=== PATIENT | male | born 1955 ===

== ENCOUNTER 2017-10-11 19:37 | Emergency (ER) | payer SELFPAY ==
[2017-10-11 20:02] VITALS: BMI 28.1
[2017-10-11 20:09] VITALS: RESP 16
[2017-10-11] MEDS ORDERED: Lidocaine/Epi 1% 1:100000 20 ML IJ ONE (20:38)
[2017-10-11] MEDS ORDERED: Tdap Vaccine 0.5 ml Vial (10-64 yrs) IM ONE ×2 (20:39→20:50)
--- NOTE | 2017-10-11 20:42 | ED PDOC ---
HPI: Trauma/Fall - HPI Time Seen by Provider: 10/11/17 20:19 Chief Complaint (Nursing): Trauma Chief Complaint (Provider): trauma History Per: Patient, Family History/Exam Limitations: no limitations Injury Occurred (Timing): Just Before Arrival Additional Complaint(s): 61 y/o male brought in by family for evaluation of head injury sustained prior to arrival. Patient states he was trying to take 4x4 wood pieces off of his pickup truck and they fell, hitting him on the back of his head/neck, causing him to forward and hit front of head on ground. Patient unsure if he lost consciousness. Patient reports dizziness and pain to neck and upper back with movement. Denies numbness/weakness of extremities, vision changes, vomiting, chest pain, shortness of breath, low back pain, bowel/bladder incontinence. Last Tetanus unknown Past Medical History Reviewed: Historical Data, Nursing Documentation, Vital Signs Vital Signs: Last Vital Signs Temp 99.1 F 10/11/17 20:02 Pulse 60 10/11/17 20:02 Resp 16 10/11/17 20:02 BP 115/73 10/11/17 20:02 Pulse Ox 99 10/11/17 20:02 - Medical History PMH: No Chronic Diseases - Surgical History Surgical History: No Surg Hx - Family History Family History: States: No Known Family Hx - Living Arrangements Living Arrangements: With Family - Home Medications Home Medications: Ambulatory Orders Medication Instructions Recorded Bacitracin Ointment [Bacitracin] 1 applic TOP BID #1 tube 10/12/17 Cephalexin [cephalexin] 500 mg PO Q6 #39 cap 10/12/17 Cyclobenzaprine [Cyclobenzaprine 10 mg PO BID PRN #14 tab 10/12/17 HCl] Naproxen [Naprosyn] 500 mg PO Q12 PRN #20 tablet 10/12/17 oxyCODONE/Acetaminophen [Percocet 1 ea PO Q6 PRN #12 tab 10/12/17 5/325 mg Tab] - Allergies Allergies/Adverse Reactions: Allergies Allergy/AdvReac Type Severity Reaction Status Date / Time No Known Allergies Allergy Verified 10/11/17 20:02 Review of Systems ROS Statement: Except As Marked, All Systems Reviewed And Found Negative Musculoskeletal: Positive for: Neck Pain, Back Pain Skin: Positive for: Other (laceration) Physical Exam - Reviewed Nursing Documentation Reviewed: Yes Vital Signs Reviewed: Yes - Physical Exam Appears: Positive for: Well, Non-toxic, No Acute Distress Head Exam: Negative for: ATRAUMATIC (8cm "U" shape laceration frontal scalp; no active bleeding. Skin erosed/friable in center of laceration; edges approximate well. 1.5cm superficial laceration posterior to first laceration. midline parietal scalp abrasion with underlying hematoma. ) Skin: Positive for: Normal Color Eye Exam: Positive for: EOMI, PERRL ENT: Positive for: Normal ENT Inspection Cardiovascular/Chest: Positive for: Regular Rate, Rhythm Respiratory: Positive for: Normal Breath Sounds Gastrointestinal/Abdominal: Positive for: Normal Exam Back: Positive for: Normal Inspection, Vertebral Tenderness (lower cspine tenderness, upper tspine tenderness; no bony deformity. No lspine tenderness), Decreased ROM (secondary to pain). Negative for: L CVA Tenderness, R CVA Tenderness Extremity: Positive for: Normal ROM Neurologic/Psych: Positive for: Alert, Oriented (x3). Negative for: Motor/ Sensory Deficits - Laboratory Results Result Diagrams: 10/11/17 22:24 10/11/17 22:24 - ECG O2 Sat by Pulse Oximetry: 99 - Progress ED Course And Treament: cervical collar applied. CT head, CT cspine, CT tspine, IM adacel, PO meclizine ordered labs, ekg, IV ancef ordered Addendum created by Bernadette Bergeron MD on 10/11/2017 11:22 PM Eastern Time ([place] & [place]) The exam findings were discussed by me with SIDDHARTHA Escobar, via telephone conference at 11:22 PM EDT on 10/11/2017. The finding(s) were acknowledged and understood. Initial Report created on 10/11/2017 11:08 PM Eastern Time ([place] & [place]) EXAM: CT Head Without Intravenous Contrast EXAM DATE/TIME: 10/11/2017 CLINICAL HISTORY: 61 years old, male; Injury or trauma; Injury history: Object fell on head; Initial encounter; Blunt trauma (contusions or hematomas); Consciousness not specified; Additional info: Head injury TECHNIQUE: Axial computed tomography images of the head/brain without intravenous contrast. All CT scans at this facility use at least one of these dose optimization techniques: automated exposure control; mA and/or kV adjustment per patient size (includes targeted exams where dose is matched to clinical indication); or iterative reconstruction. COMPARISON: No relevant prior exam is available at the time of interpretation. FINDINGS: Brain: No acute intracranial hemorrhage. No abnormal extra-axial fluid collection. No herniation. Patent basal cisterns. Preserved sheffield-white matter differentiation. No evidence of acute ischemia. No evident intracranial mass. Ventricles: No ventriculomegaly. Bones/joints: No evident calvarial fracture. Sinuses: Minimal mucosal thickening in the paranasal sinuses. Mastoid air cells: The mastoid air cells are clear. Orbits: No evident abnormality of the intraorbital contents. Soft tissues: Midline frontoparietal scalp contusion. Several small foci of air scattered in the contused scalp. Two high attenuation foreign bodies in the contused scalp, the larger of which measures 4 x 3 x 3 mm (series 602, image 41). IMPRESSION: 1. No acute intracranial findings. 2. Midline frontoparietal scalp contusion and laceration. Two sub-5 mm high attenuation foreign bodies in the contused scalp EXAM: CT Cervical Spine Without Intravenous Contrast EXAM DATE/TIME: 10/11/2017 CLINICAL HISTORY: 61 years old, male; Injury or trauma; Injury history: Object fell on head; Initial encounter; Blunt trauma TECHNIQUE: Axial computed tomography images of the cervical spine without intravenous contrast. All CT scans at this facility use at least one of these dose optimization techniques: automated exposure control; mA and/or kV adjustment per patient size (includes targeted exams where dose is matched to clinical indication); or iterative reconstruction. COMPARISON: No relevant prior exam is available at the time of interpretation. FINDINGS: Vertebrae: The spine is imaged from the skull base through T3. Acute, minimally displaced fracture through the C5 spinous process with extension anteriorly through the posterior aspect of the right C5 lamina. Acute fracture through the T1 spinous process that is displaced by up to 12 mm. There is no extension of the T1 spinous process fracture through either T1 lamina. No other acute fracture. Incidental note is made of an unfused inferior ring apophysis of the C5 vertebral body. Aside from the displacement of the acute fractures, there is normal alignment of the imaged spine. Discs/Spinal canal/Neural foramina: No evident acute abnormality within the spinal canal. Soft tissues: No prevertebral soft tissue swelling. Mild to moderate soft tissue hemorrhage and edema surrounding the acute spinal fractures. Lung apices: No pleural fluid collection, pneumothorax, or airspace consolidation in the imaged portion of the thorax. Sinuses: Mild mucosal thickening in the left maxillary sinus. IMPRESSION: 1. Acute, minimally displaced fracture of the C5 spinous process with extension through the right lamina. 2. Acute, displaced fracture of the T1 spinous process without extension through either lamina. 3. Mild to moderate soft tissue hemorrhage and edema surrounding the acute spinal fractures. EXAM: CT Thoracic Spine Without Intravenous Contrast EXAM DATE/TIME: 10/11/2017 CLINICAL HISTORY: 61 years old, male; Injury or trauma; Injury history: Object fell on head; Initial encounter; Blunt trauma (contusions or hematomas) TECHNIQUE: Axial computed tomography images of the thoracic spine without intravenous contrast. All CT scans at this facility use at least one of these dose optimization techniques: automated exposure control; mA and/or kV adjustment per patient size (includes targeted exams where dose is matched to clinical indication); or iterative reconstruction. Coronal and sagittal reformatted images were created and reviewed. COMPARISON: No relevant prior exam is available at the time of interpretation. FINDINGS: Vertebrae: The spine is imaged from mid C5 through the top of L1. Acute fracture through the T1 spinous process that is displaced by up to 12 mm. There is no extension of the T1 spinous process fracture through either T1 lamina. No other acute fracture of the thoracic spine. Aside from the displacement of the T1 spinous process fracture, there is normal alignment of the imaged spine. Discs/Spinal canal/Neural foramina: No evident acute abnormality within the spinal canal. Mild multilevel degenerative changes of the thoracic spine. Other bones/joints: Acute, nondisplaced fracture of the posterior right 2nd rib. Soft tissues: Moderate soft tissue hemorrhage and edema surrounding the T1 spinous process fracture. Lungs: Patchy ground glass opacity in both lungs, lower lobe predominant. Pleural space: Several pleural-based or subpleural nodules along the right hemidiaphragm, the largest of which measures 17 mm. No pneumothorax or pleural fluid collection in the imaged portion of the thorax. Other findings: Cardiomegaly. IMPRESSION: 1. Acute, displaced fracture of the T1 spinous process without extension through either lamina. 2. Acute, nondisplaced fracture of the posterior right 2nd rib. 3. Several pleural-based or subpleural nodules along the right hemidiaphragm, the largest of which measures 17 mm. Follow up per institution protocol. 4. Patchy ground glass opacity in both lungs is likely subsegmental atelectasis but differential diagnosis also includes entities such as pulmonary edema, an atypical or viral pneumonia, and early interstitial lung disease. 5. Additional findings as described above. Findings discussed with Dr. Tellez, Neurosurgery on-call; recommends cspine flexion/extension xray's, if normal can be discharged EXAM: XR Cervical Spine, 6 or More Views EXAM DATE/TIME: 10/11/2017 11:43 PM CLINICAL HISTORY: 61 years old, male; Injury or trauma; Injury history: Object fell on head; Initial encounter; Bleeding/hemorrhage and blunt trauma; Additional info: Cspine FX. Flexion extention per nutoriergeon TECHNIQUE: XR of the cervical spine, 6 or more views (frontal, lateral, bilateral oblique, and odontoid views as well as flexion and extension lateral views). COMPARISON: CT Cervical Spine 10/11/2017 FINDINGS: Vertebrae: The C7-T1 junction is inadequately visualized on the lateral views in neutral, flexion, and extension positions. The C6-C7 junction is inadequately visualized on the lateral view in flexion position. There is normal alignment of the skull base through C7 on the lateral views in neutral and extension positions. There is normal alignment of the skull base through C6 on the lateral view in flexion position. The C5 spinous process fracture and T1 spinous process fracture are redemonstrated but are suboptimally delineated on this examination. Redemonstrated unfused inferior ring apophysis of the C5 vertebral body. Soft tissues: No prevertebral soft tissue swelling. IMPRESSION: 1. The C7-T1 junction is inadequately visualized on the lateral views in neutral , flexion, and extension positions. The C6-C7 junction is inadequately visualized on the lateral view in flexion position. 2. There is normal alignment of the skull base through C7 on the lateral views in neutral and extension positions. There is normal alignment of the skull base through C6 on the lateral view in flexion position. 3. Redemonstrated spinous process fractures of C5 and T1, suboptimally delineated on this examination. Superficial laceration anesthetized with 1% lido with epi; explored for FB; visible gravel piece noted embedded within superficial laceration; removed using forceps Area again thoroughly irrigated with 250mL NS 2 sutures used to close wound, which opened after probing with forceps to remove FB (noted in procedure section) Xray findings discussed with Dr. Tellez, who states patient can be discharged. Soft c collar applied Patient given incentive spirometer with instructions on use by respiratory therapist for rib fracture Patient evaluated by FP resident on-call to expedite clinic follow up On re-eval, patient states he is feeling better. Ambulating without difficulty/ acute complaints Patient/family educated on wound care, advised suture removal 10 days, but to follow up in 2 days for wound check Rx keflex, Percocet, Naproxen, Flexeril, Bacitracin given Return precautions given Of note, patient speaks Israeli, son also here translating in Greek, patient comfortable with family translating instead of using curtain roller assembler machine Patient/family demonstrate full understanding of discharge instructions. Patient requires no further intervention in ED and is stable for discharge at this time Disposition - Clinical Impression Clinical Impression: Fracture of spinous process of cervical vertebra, Fracture of spinous process of thoracic vertebra, Right rib fracture, Complex laceration of face, Head injury - Patient ED Disposition Is Patient to be Admitted: No Counseled Patient/Family Regarding: Studies Performed, Diagnosis, Need For Followup - Disposition Referrals: [facility] [Outside] Disposition: Routine/Home Disposition Time: 03:00 Condition: IMPROVED Additional Instructions: Eliminacin de sutura en 10 fraser Seguimiento en la clnica en 2 fraser para el control de heridas Herida limpia diariamente Regresar a la pavel de emergencias para tratar los sntomas Prescriptions: Bacitracin Ointment [Bacitracin] 1 applic TOP BID #1 tube Cephalexin [cephalexin] 500 mg PO Q6 #39 cap Cyclobenzaprine [Cyclobenzaprine HCl] 10 mg PO BID PRN #14 tab PRN Reason: Muscle Spasm Naproxen [Naprosyn] 500 mg PO Q12 PRN #20 tablet PRN Reason: Pain, Moderate (4-7) oxyCODONE/Acetaminophen [Percocet 5/325 mg Tab] 1 ea PO Q6 PRN #12 tab PRN Reason: Pain, Severe (8-10) Instructions: Rib Fractures in Adults, Neck Fracture, Laceration Repair, Upper Back Pain, Minor Head Injury Print Language: KOREAN Procedure: Wound Repair - Time Performed Time Performed: 22:00 - Time Out Time Out: Side verified, Site verified, Patient ID confirmed, Sterile procedures obs. - Procedure Procedure: Wound Repair: forehead/scalp laceration - Consent Obtained Consent obtained: Verbal - Performed by Performed by: Mid-level Provider - Location Shape:: Curvilinear Dimensions Length cm: 8cm Dimensions width cm: 2cm Depth:: Muscle - Anesthetic Technique Anesthetic Technique: Topical Local/Regional Anesthetic:: Lidocaine 1% w/epi - Debris Debris:: None - Irrigated Irrigated with ml of normal saline: 250mL - Complexity Complexity:: Simple (one layer) - Wound repair method Sutures:: # (16 in first laceration, 2 in second laceration (18 total)), Size (5 '0), Type (prolene), Technique (interrupted) - Patient tolerated procedure Patient Tolerated Procedure:: Well
[2017-10-11] MEDS ORDERED: Lidocaine 1% w Epi 1:100,000 Inj ONE (20:49)
[2017-10-11] MEDS ORDERED: ceFAZolin 1 GM in Sodium Chloride 0.9% 100 ML IV STA (21:38)
[2017-10-11 22:28] LABS: BASO % 0.2 % (0.0-2.0); EOS % 0.1 % (0.0-4.0); HEMOGLOBIN 13.3 g/dL (12.0-18.0); LYMPH # 1.1 K/uL (1.0-4.3); LYMPH % 6.9 % (20.0-40.0); MEAN CELL VOLUME 91.4 fl (80.0-94.0); MEAN CORPUSCULAR HEMOGLOBIN 30.4 pg (27.0-31.0); MEAN CORPUSCULAR HGB CONC 33.3 g/dL (33.0-37.0); MEAN PLATELET VOLUME 9.2 fl (7.2-11.7); MONO % 6.2 % (0.0-10.0); NEUT # 13.3 K/uL (1.8-7.0); NEUT % 86.6 % (50.0-75.0); PLATELET COUNT 243 K/uL (130-400); RBC 4.38 Mil/uL (4.40-5.90); WHITE BLOOD COUNT 15.4 K/uL (4.8-10.8)
[2017-10-11 22:37] LABS: ALB/GLOB RATIO 1.6 (1.0-2.1); ALBUMIN 4.6 g/dL (3.5-5.0); ALT/SGPT 30 U/L (21-72); AST/SGOT 42 U/L (17-59); BLOOD UREA NITROGEN 21 mg/dl (9-20); CALCIUM 9.3 mg/dL (8.4-10.2); GFR NON-AFRICAN AMERICAN > 60
[2017-10-11 22:45] LABS: INR 1.1; PROTHROMBIN TIME 12.1 Seconds (9.8-13.1)
[2017-10-11 22:47] LABS: PARTIAL THROMBOPLASTIN TIME 30.4 Seconds (25.6-37.1)
[2017-10-11 23:04] LABS: BANDS 4 % (0-2); LYMPHOCYTE 7 % (20-50); MONOCYTE 6 % (0-10); NEUTROPHIL 83 % (42-75); PLATELET ESTIMATE NORMAL (NORMAL); TOTAL CELLS COUNTED 100
[2017-10-11 23:05] LABS: HYPOCHROMIC SLIGHT; TOXIC GRANULATION PRESENT
[2017-10-12 02:33] VITALS: TEMP 98.2
[2017-10-12] MEDS ORDERED: Oxycodone/Acetaminophen 5/325 mg Tab PO ONE (03:12)
[2017-10-12 04:44] VITALS: BP 132/78; PULSE 82
--- NOTE | 2017-10-12 08:36 | CT ---
Date of service: 10/11/2017 PROCEDURE: CT HEAD WITHOUT CONTRAST. HISTORY: head injury COMPARISON: None available. TECHNIQUE: Axial computed tomography images were obtained through the head/brain without intravenous contrast. Radiation dose: Total exam DLP = 874.95 mGy-cm. This CT exam was performed using one or more of the following dose reduction techniques: Automated exposure control, adjustment of the mA and/or kV according to patient size, and/or use of iterative reconstruction technique. FINDINGS: HEMORRHAGE: No intracranial hemorrhage. BRAIN: [place]-white matter differentiation is preserved. There is no mass, mass effect or abnormal extra-axial fluid collection. There is no territorial infarction. The midline sagittal structures are normal. VENTRICLES: The ventricles are normal in size, shape and configuration. CALVARIUM: There is no calvarial fracture. There is a small left paramedian frontal scalp hematoma. There is also contusion and 2 discrete 5 mm foreign bodies. PARANASAL SINUSES: Unremarkable as visualized. No significant inflammatory changes. MASTOID AIR CELLS: Unremarkable as visualized. No inflammatory changes. OTHER FINDINGS: None. IMPRESSION: No acute intracranial abnormality. Small left paramedian frontal scalp hematoma and 2 discrete 5 mm foreign bodies. A preliminary report was provided by [email or web address] services.
--- NOTE | 2017-10-12 09:09 | CARD ---
APPROVED REPORT Date of service: 10/11/2017 EKG Measurement Heart [id number] <Conclusion> Sinus bradycardia Otherwise normal ECG
--- NOTE | 2017-10-12 10:13 | RAD ---
Date of service: 10/11/2017 PROCEDURE: Cervical Spine Radiographs. HISTORY: Pain. COMPARISON: None. FINDINGS: BONES: There is normal alignment of the cervical vertebral bodies. There is normal cervical lordosis. Vertebral height is normal. Bone mineralization is normal. There is no acute fracture or traumatic anterior listhesis. The craniocervical junction is normal. The atlantoaxial joint normal. DISC SPACES: The disc heights are maintained. No neural foraminal narrowing. SOFT TISSUES: Normal. No prevertebral soft tissue swelling. OTHER FINDINGS: None. IMPRESSION: No acute fracture or traumatic anterior listhesis. No significant degenerative disc disease.
--- NOTE | 2017-10-12 10:38 | CT ---
Date of service: 10/11/2017 PROCEDURE: CT Cervical Spine without contrast HISTORY: Trauma COMPARISON: None available. TECHNIQUE: Axial computed tomography images were obtained of the cervical spine without the use of intravenous contrast. Coronal and sagittal reformatted images were created and reviewed. Radiation dose: Total exam DLP = 397.32 mGy-cm. This CT exam was performed using one or more of the following dose reduction techniques: Automated exposure control, adjustment of the mA and/or kV according to patient size, and/or use of iterative reconstruction technique. FINDINGS: VERTEBRAE: There is mild degenerative retrolisthesis of C2 on C3. There is normal cervical lordosis. There is an acute mildly distracted fracture in the C5 spinous process and posterior right lamina. There is also an acute fracture in the T1 spinous process with approximately 12 mm posterior displacement of the fracture fragment. There is no traumatic anterior listhesis. Bone mineralization is normal. The craniocervical junction is normal. The atlantoaxial joint is normal. DISCS/SPINAL CANAL/NEURAL FORAMINA: There is mild multilevel degenerative disc disease due to combination of disc osteophyte complexes, uncovertebral joint hypertrophy and multilevel facet arthropathy, worse at C5-6 with a broad-based central disc protrusion and mild bilateral neural foraminal narrowing. No central spinal canal stenosis. PARASPINAL SOFT TISSUES: There is mild soft tissue edema and hemorrhage surrounding the spinous process fractures. OTHER FINDINGS: No prevertebral soft tissue thickening. No apical pneumothorax. IMPRESSION: 1. Acute mildly distracted fracture in the C5 spinous process with extension through the right posterior lamina. 2. Acute displaced fracture in the T1 spinous process with 12 mm posterior displacement of fracture fragment. No extension into the lamina. 3. No acute vertebral body fracture or traumatic anterior listhesis. A preliminary report was provided by [facility] services.
--- NOTE | 2017-10-12 11:25 | CT ---
Date of service: 10/11/2017 PROCEDURE: CT Thoracic Spine without contrast HISTORY: Trauma COMPARISON: None available. TECHNIQUE: Axial computed tomography images were obtained of the thoracic spine without intravenous contrast. Coronal and sagittal reformatted images were created and reviewed. Radiation dose: Total exam DLP = 779.00 mGy-cm. This CT exam was performed using one or more of the following dose reduction techniques: Automated exposure control, adjustment of the mA and/or kV according to patient size, and/or use of iterative reconstruction technique. FINDINGS: VERTEBRAE: There is normal alignment of the thoracic vertebral bodies. There is normal thoracic kyphosis. Bone mineralization is normal. There is an acute displaced fracture in the T1 spinous process with 12 mm posterior displacement of the fracture fragment. No evidence of extension into the lamina. DISCS/SPINAL CANAL/NEURAL FORAMINA: Within the limits of the CT technique, no disc herniation seen. No central canal or neural foraminal stenosis.. PARASPINAL SOFT TISSUES: Unremarkable. OTHER FINDINGS: Several subpleural nodules along the right hemidiaphragm, the largest measures 17 mm. No pleural effusion or pneumothorax. Acute nondisplaced fracture in the right posterior 2nd rib. IMPRESSION: 1. Acute displaced fracture in the T1 spinous process with 12 mm posterior displacement of fracture fragment. 2. Acute nondisplaced fracture in the right posterior 2nd rib. 3. Several right basilar subpleural nodules, the largest measures [address] scan of the thorax without intravenous contrast is recommended for complete evaluation of the lungs. A preliminary report was provided by [employer] services.
[2017-10-13 05:44] VITALS: O2SAT 99
== END 2017-10-12 03:15 | disposition home or self-care (01) ==
LOC: H.ER 19:37
DX: S01.91XA Laceration without foreign body of unspecified part of head, initial encounter (principal); S00.01XA Abrasion of scalp, initial encounter; S22.019A Unspecified fracture of first thoracic vertebra, initial encounter for closed fracture; S22.43XA Multiple fractures of ribs, bilateral, initial encounter for closed fracture; S19.9XXA Unspecified injury of neck, initial encounter; S01.81XA Laceration without foreign body of other part of head, initial encounter; S00.03XA Contusion of scalp, initial encounter; S09.90XA Unspecified injury of head, initial encounter; W20.8XXA Other cause of strike by thrown, projected or falling object, initial encounter
CPT/HCPCS: 70450; 72052; 72125; 72128; 80053; 85025; 85610; 85730; 90471; 90715; 93005; 96360; 99285; J0690

== ENCOUNTER 2017-10-20 13:18 | Emergency (ER) | payer SELFPAY ==
[2017-10-20 13:18] VITALS: BMI 28.1
[2017-10-20 13:34] VITALS: PULSE 60; RESP 19; TEMP 97.4; O2SAT 98
[2017-10-20 13:38] VITALS: BP 115/71
--- NOTE | 2017-10-20 14:07 | ED PDOC ---
HPI: General Adult Time Seen by Provider: 10/20/17 13:43 Chief Complaint (Nursing): Suture/Staple Removal Chief Complaint (Provider): Suture Removal History Per: Patient History/Exam Limitations: no limitations Onset/Duration Of Symptoms: Days Current Symptoms Are (Timing): Better Additional Complaint(s): 61 year old male presents to the ED for a suture removal on scalp after sustaining a head injury on 10/11/17 as well as a fracture to T2. Patient states we went to the clinic for a follow-up. He was here 11/18/17 and 6 sutures were removed. PMD: Non [facility] Provider Past Medical History Reviewed: Historical Data, Nursing Documentation, Vital Signs Vital Signs: Last Vital Signs Temp 97.4 F L 10/20/17 13:32 Pulse 60 10/20/17 13:32 Resp 19 10/20/17 13:32 BP 115/71 10/20/17 13:37 Pulse Ox 98 10/20/17 14:12 - Medical History PMH: No Chronic Diseases - Family History Family History: States: Unknown Family Hx - Home Medications Home Medications: Ambulatory Orders Medication Instructions Recorded Bacitracin Ointment [Bacitracin] 1 applic TOP BID #1 tube 10/12/17 Cephalexin [cephalexin] 500 mg PO Q6 #39 cap 10/12/17 Cyclobenzaprine [Cyclobenzaprine 10 mg PO BID PRN #14 tab 10/12/17 HCl] Naproxen [Naprosyn] 500 mg PO Q12 PRN #20 tablet 10/12/17 oxyCODONE/Acetaminophen [Percocet 1 ea PO Q6 PRN #12 tab 10/12/17 5/325 mg Tab] Naproxen 375 mg PO Q8 PRN #12 tablet 10/20/17 - Allergies Allergies/Adverse Reactions: Allergies Allergy/AdvReac Type Severity Reaction Status Date / Time No Known Allergies Allergy Verified 10/11/17 20:02 Review of Systems ROS Statement: Except As Marked, All Systems Reviewed And Found Negative Skin: Positive for: Other (Suture Removal) Physical Exam - Reviewed Nursing Documentation Reviewed: Yes Vital Signs Reviewed: Yes - Physical Exam Appears: Positive for: Well, Non-toxic, No Acute Distress Head Exam: Positive for: ATRAUMATIC, NORMAL INSPECTION, NORMOCEPHALIC Skin: Positive for: Normal Color, Warm, Dry Eye Exam: Positive for: Normal appearance Extremity: Positive for: Other (12 sutures removed ) Neurologic/Psych: Positive for: Alert, Oriented (x3). Negative for: Motor/ Sensory Deficits - ECG O2 Sat by Pulse Oximetry: 98 (RA) Pulse Ox Interpretation: Normal Medical Decision Making Medical Decision Making: Time: 1343 Initial Impression: Suture Removal Scribe Attestation: Documented by Consuelo Pham, acting as a scribe for Karina Monroe PA-C. Provider Scribe Attestation: All medical record entries made by the Scribe were at my direction and personally dictated by me. I have reviewed the chart and agree that the record accurately reflects my personal performance of the history, physical exam, medical decision making, and the department course for this patient. I have also personally directed, reviewed, and agree with the discharge instructions and disposition. Disposition - Clinical Impression Clinical Impression: Removal of suture, Head injury, Thoracic vertebral fracture - Patient ED Disposition Is Patient to be Admitted: No - Disposition Disposition: Routine/Home Disposition Time: 13:50 Condition: FAIR Prescriptions: Naproxen 375 mg PO Q8 PRN #12 tablet PRN Reason: Pain, Moderate (4-7) Instructions: Concussion in Adults, Stitches Removal Print Language: CITIZ[place]
--- NOTE | 2017-10-20 14:10 | ED PDOC ---
HPI: Wound Care - HPI Time Seen by Provider: 10/20/17 13:43 Chief Complaint (Nursing): Suture/Staple Removal History Per: Patient (61 y/o male here for suture removal after head injury 10 days prior. Notes ongoing back pain) Past Medical History Reviewed: Historical Data, Nursing Documentation, Vital Signs Vital Signs: Last Vital Signs Temp 97.4 F L 10/20/17 13:32 Pulse 60 10/20/17 13:32 Resp 19 10/20/17 13:32 BP 115/71 10/20/17 13:37 Pulse Ox 98 10/20/17 13:32 - Family History Family History: States: No Known Family Hx - Home Medications Home Medications: Ambulatory Orders Medication Instructions Recorded Bacitracin Ointment [Bacitracin] 1 applic TOP BID #1 tube 10/12/17 Cephalexin [cephalexin] 500 mg PO Q6 #39 cap 10/12/17 Cyclobenzaprine [Cyclobenzaprine 10 mg PO BID PRN #14 tab 10/12/17 HCl] Naproxen [Naprosyn] 500 mg PO Q12 PRN #20 tablet 10/12/17 oxyCODONE/Acetaminophen [Percocet 1 ea PO Q6 PRN #12 tab 10/12/17 5/325 mg Tab] Naproxen 375 mg PO Q8 PRN #12 tablet 10/20/17 - Allergies Allergies/Adverse Reactions: Allergies Allergy/AdvReac Type Severity Reaction Status Date / Time No Known Allergies Allergy Verified 10/11/17 20:02 Review of Systems ROS Statement: Except As Marked, All Systems Reviewed And Found Negative Physical Exam - Reviewed Nursing Documentation Reviewed: Yes Vital Signs Reviewed: Yes - Physical Exam Appears: Positive for: Well, Non-toxic, No Acute Distress Head Exam: Positive for: NORMAL INSPECTION, NORMOCEPHALIC. Negative for: ATRAUMATIC (well-healing wound superior aspect of head.) Skin: Positive for: Normal Color, Warm, DRY Eye Exam: Positive for: EOMI, Normal appearance, PERRL ENT: Positive for: Normal ENT Inspection Neck: Positive for: Normal, Painless ROM Cardiovascular/Chest: Positive for: Regular Rate, Rhythm Respiratory: Positive for: CNT, Normal Breath Sounds Gastrointestinal/Abdominal: Positive for: Normal Exam, Soft Back: Positive for: Normal Inspection Extremity: Positive for: Normal ROM Neurologic/Psych: Positive for: Alert, Oriented - ECG O2 Sat by Pulse Oximetry: 98 - Progress ED Course And Treament: sutures removed without difficulty Disposition - Clinical Impression Clinical Impression: Removal of suture, Head injury, Thoracic vertebral fracture - Patient ED Disposition Is Patient to be Admitted: No - Disposition Disposition: Routine/Home Disposition Time: 14:07 Condition: FAIR Prescriptions: Naproxen 375 mg PO Q8 PRN #12 tablet PRN Reason: Pain, Moderate (4-7) Instructions: Concussion in Adults, Stitches Removal Print Language: [place]
== END 2017-10-20 14:19 | disposition home or self-care (01) ==
LOC: H.ER 13:18
DX: Z48.02 Encounter for removal of sutures (principal)

== ENCOUNTER 2017-11-07 17:33 | Emergency (ER) | payer SELFPAY ==
[2017-11-07 17:33] VITALS: BMI 28.1
[2017-11-07 17:41] VITALS: O2SAT 97
--- NOTE | 2017-11-07 18:14 | ED PDOC ---
HPI: General Adult Time Seen by Provider: 11/07/17 17:47 Chief Complaint (Nursing): Dizziness/Lightheaded Chief Complaint (Provider): Dizziness/Lightheaded History Per: Patient History/Exam Limitations: no limitations Onset/Duration Of Symptoms: Hrs (this morning) Current Symptoms Are (Timing): Still Present Additional Complaint(s): 62 year old male presents to the ED complaining of vertigo and dizziness since this morning. Patient reports he was stretching and was exercising this morning. He states dizziness lasted about 2 minutes. Patient has had no similar symptoms in the past. Denies CP, SOB, paresthesia, or weakness. Patient presented to this ED with a head injury on October 11, 2017 for a laceration repair on his forehead. Upon review of old records, pt's HR ~60. PMD: none Past Medical History Reviewed: Historical Data, Nursing Documentation, Vital Signs Vital Signs: Last Vital Signs Temp 98.0 F 11/07/17 21:29 Pulse 53 L 11/07/17 21:29 Resp 18 11/07/17 21:29 BP 127/68 11/07/17 21:29 Pulse Ox 97 11/07/17 21:29 - Medical History PMH: No Chronic Diseases - Surgical History Surgical History: No Surg Hx - Family History Family History: States: Unknown Family Hx - Social History Current smoker - smoking cessation education provided: No Alcohol: None Drugs: Denies - Home Medications Home Medications: Ambulatory Orders Medication Instructions Recorded Bacitracin Ointment [Bacitracin] 1 applic TOP BID #1 tube 10/12/17 Cephalexin [cephalexin] 500 mg PO Q6 #39 cap 10/12/17 Cyclobenzaprine [Cyclobenzaprine 10 mg PO BID PRN #14 tab 10/12/17 HCl] Naproxen [Naprosyn] 500 mg PO Q12 PRN #20 tablet 10/12/17 oxyCODONE/Acetaminophen [Percocet 1 ea PO Q6 PRN #12 tab 10/12/17 5/325 mg Tab] Naproxen 375 mg PO Q8 PRN #12 tablet 10/20/17 Meclizine [Meclizine*] 25 mg PO Q6 PRN #20 tab 11/07/17 Naproxen [Naprosyn] 500 mg PO BID PRN #15 tablet 09/18/18 Ondansetron [Zofran Odt] 4 mg PO Q8H PRN #15 odt 11/07/17 - Allergies Allergies/Adverse Reactions: Allergies Allergy/AdvReac Type Severity Reaction Status Date / Time aspirin Allergy RASH Verified 11/07/17 17:36 Review of Systems ROS Statement: Except As Marked, All Systems Reviewed And Found Negative Cardiovascular: Negative for: Chest Pain Respiratory: Negative for: Shortness of Breath Neurological: Positive for: Dizziness (and vertigo). Negative for: Weakness, Other (paresthesia) Physical Exam - Reviewed Nursing Documentation Reviewed: Yes Vital Signs Reviewed: Yes - Physical Exam Appears: Positive for: Non-toxic, No Acute Distress Head Exam: Positive for: ATRAUMATIC, NORMOCEPHALIC Skin: Positive for: Normal Color, Warm, Dry Eye Exam: Positive for: Other (Horizontal Nystagmus) Neck: Positive for: Normal, Painless ROM Cardiovascular/Chest: Positive for: Regular Rate, Rhythm. Negative for: Murmur Respiratory: Positive for: Normal Breath Sounds. Negative for: Wheezing, Respiratory Distress Extremity: Positive for: Normal ROM Neurologic/Psych: Positive for: Alert, Oriented. Negative for: Motor/Sensory Deficits - Laboratory Results Result Diagrams: 11/07/17 18:41 11/07/17 18:41 - ECG Interpretation Of ECG: Sinus hans @ 52, no ST-T changes. O2 Sat by Pulse Oximetry: 97 (RA) Pulse Ox Interpretation: Normal Medical Decision Making Medical Decision Making: Initial Impression: Vertigo and dizziness Initial Plan: --CT Head and Neck --ECG --CMP --ED urine dipstick --CBC --PTT --Prothrombin time --Chest X-ray --Antivert 50mg PO --Urinalysis Accession No. : [id number] Patient Name / ID : FELIX REZA / [id number] Exam Date : 11/07/2017 18:57:18 ( Approved ) Study Comment : Sex / Age : M / 62Y Creator : Noelle Correa MD Dictator : Noelle Correa MD Piped Pocket Machine Operator : Passenger Locomotive Engineer : Noelle Correa MD Approver2 : Report Date : 11/08/2017 11:59:59 My Comment : PROCEDURE: CTA HEAD AND NECK WITH CONTRAST HISTORY: Vertigo COMPARISON: None available. TECHNIQUE: Initial noncontrast head CT was performed. Subsequently, CT angiogram of the head and neck were performed after the intravenous administration of 80 mL of Omnipaque 350. Contiguous 1.5mm thick images were obtained in the axial plane of the neck. 2-D coronal and sagittal MPR images were obtained. Imaging postprocessing was performed with 3-D images also obtained. A delayed contrast head CT was also obtained. This CT exam was performed using one or more of the following dose reduction techniques: Automated exposure control, adjustment of the mA and/or kV according to patient size, and/or use of iterative reconstruction technique. Contrast dose: 95 mL Visipaque 320 Radiation dose: Total exam DLP = 2215.54 mGy-cm. FINDINGS: HEAD: Right: The intracranial internal carotid artery, and anterior and middle cerebral arteries are widely patent. Left: The intracranial internal carotid artery, and anterior and middle cerebral arteries are widely patent. Posterior circulation: The visualized intracranial vertebral arteries, basilar artery and posterior cerebral arteries are widely patent. There is no endoluminal filling defect to suggest thrombus. There is no intracranial saccular aneurysm. NECK: There is a three vessel aortic arch. There is no stenosis at the origins of the great vessels at the level of the aortic arch. Right Carotid: On the right, the common carotid, internal carotid and external carotid arteries are widely patent. There is no hemodynamically significant stenosis in the internal carotid artery by NASCET criteria. Left Carotid: On the left, the common carotid, internal carotid and external carotid arteries are widely patent.There is no hemodynamically significant stenosis in the internal carotid arteries. There is no hemodynamically significant stenosis in the internal carotid artery by NASCET criteria. The vertebral arteries are widely patent. The visualized soft tissues of the neck are normal. The visualized brain and cervical spine are within normal limits. The lung apices are clear. IMPRESSION: 1. No evidence of endoluminal thrombus,occlusion or definite significant stenosis in the intracranial arteries. 2. No evidence of hemodynamically significant stenosis in the internal carotid arteries. 3. Patent bilateral vertebral arteries. A preliminary report was provided by [facility] services. Accession No. : [id number] Patient Name / ID : FELIX REZA / [id number] Exam Date : 11/07/2017 19:31:38 ( Approved ) Study Comment : Sex / Age : M / 62Y Creator : Kaelyn Jesus V. Dictator : Kaelyn Jesus V. Piped Pocket Machine Operator : Passenger Locomotive Engineer : Kaelyn Jesus V. Approver2 : Report Date : 11/08/2017 09:05:06 My Comment : Date of service: 11/07/2017 PROCEDURE: CT HEAD WITHOUT CONTRAST. HISTORY: Vertigo COMPARISON: None available. TECHNIQUE: Axial computed tomography images were obtained through the head/brain without intravenous contrast. Radiation dose: Total exam DLP = 743 mGy-cm. This CT exam was performed using one or more of the following dose reduction techniques: Automated exposure control, adjustment of the mA and/or kV according to patient size, and/or use of iterative reconstruction technique. FINDINGS: HEMORRHAGE: No intracranial hemorrhage. BRAIN: No mass effect or edema. No atrophy or chronic microvascular ischemic changes. VENTRICLES: Unremarkable. No hydrocephalus. CALVARIUM: Unremarkable. PARANASAL SINUSES: Unremarkable as visualized. No significant inflammatory changes. MASTOID AIR CELLS: Unremarkable as visualized. No inflammatory changes. OTHER FINDINGS: None. IMPRESSION: Normal CT of the Head. Concordant results (preliminary interpretation) provided by [facility]. Scribe Attestation: Documented by Isaac Silvestre acting as a scribe for Yvette Herrera MD. Provider Scribe Attestation: All medical record entries made by the Scribe were at my direction and personally dictated by me. I have reviewed the chart and agree that the record accurately reflects my personal performance of the history, physical exam, medical decision making, and the department course for this patient. I have also personally directed, reviewed, and agree with the discharge instructions and disposition. Disposition - Clinical Impression Clinical Impression: Vertigo - Disposition Referrals: Silviano Vale MD [Medical Doctor] - [facility] [Outside] Disposition: Routine/Home Disposition Time: 21:11 Condition: IMPROVED Prescriptions: Meclizine [Meclizine*] 25 mg PO Q6 PRN #20 tab PRN Reason: Dizziness Naproxen [Naprosyn] 500 mg PO BID PRN #15 tablet PRN Reason: Pain, Moderate (4-7) Ondansetron [Zofran Odt] 4 mg PO Q8H PRN #15 odt PRN Reason: Nausea/Vomiting Instructions: Vertigo (a Type of Dizziness) Forms: [employer] ([place])
[2017-11-07] MEDS ORDERED: Sodium Chloride 0.9% 1,000 ML IV STA (18:43)
--- NOTE | 2017-11-07 18:46 | RAD ---
Date of service: 11/07/2017 HISTORY: Dizziness COMPARISON: Chest CT 10/25/2017. FINDINGS: LUNGS: No active pulmonary disease. PLEURA: No significant pleural effusion identified, no pneumothorax apparent. CARDIOVASCULAR: Normal. OSSEOUS STRUCTURES: No significant abnormalities. VISUALIZED UPPER ABDOMEN: Normal. OTHER FINDINGS: None. IMPRESSION: No acute cardiopulmonary disease. Please see separate chest CT report performed 10/25/2017 earlier the same day demonstrating multiple pulmonary nodules.
[2017-11-07 18:48] LABS: BASO # 0.1 K/uL (0.0-0.2); BASO % 1.2 % (0.0-2.0); EOS % 0.2 % (0.0-4.0); HEMOGLOBIN 13.9 g/dL (12.0-18.0); LYMPH # 1.5 K/uL (1.0-4.3); LYMPH % 16.4 % (20.0-40.0); MEAN CELL VOLUME 90.5 fl (80.0-94.0); MEAN CORPUSCULAR HEMOGLOBIN 30.7 pg (27.0-31.0); MEAN CORPUSCULAR HGB CONC 33.9 g/dL (33.0-37.0); MEAN PLATELET VOLUME 8.6 fl (7.2-11.7); MONO # 0.4 K/uL (0.0-0.8); MONO % 4.1 % (0.0-10.0); NEUT # 7.2 K/uL (1.8-7.0); NEUT % 78.1 % (50.0-75.0); RBC 4.54 Mil/uL (4.40-5.90); SQUAMOUS EPITHIAL < 1 /hpf (0-5); URINE BACTERIA RARE (<OCC); URINE BILIRUBIN NEGATIVE (NEGATIVE); URINE BLOOD NEGATIVE (NEGATIVE); URINE CLARITY CLEAR (Clear); URINE COLOR YELLOW (YELLOW); URINE GLUCOSE (UA) NEG (Normal); URINE LEUKOCYTE ESTERASE NEG Leu/uL (Negative); URINE PROTEIN 30 mg/dL (NEGATIVE); URINE UROBILINOGEN 0.2-1.0 mg/dL (0.2-1.0); WHITE BLOOD COUNT 9.2 K/uL (4.8-10.8)
[2017-11-07] MEDS ORDERED: Sodium Chloride 0.9% 50 ML IV ONE (18:51)
[2017-11-07] MEDS ORDERED: Iodixanol 320 MG/ML 100 ML BOTTLE IV ONE (18:51)
[2017-11-07 18:54] LABS: PROTHROMBIN TIME 10.5 Seconds (9.8-13.1)
[2017-11-07 18:57] LABS: PARTIAL THROMBOPLASTIN TIME 29.5 Seconds (25.6-37.1)
[2017-11-07 19:13] LABS: ALB/GLOB RATIO 1.3 (1.0-2.1); ALBUMIN 4.3 g/dL (3.5-5.0); ALT/SGPT 29 U/L (21-72); AST/SGOT 28 U/L (17-59); BLOOD UREA NITROGEN 14 mg/dl (9-20); CALCIUM 9.6 mg/dL (8.4-10.2); GFR NON-AFRICAN AMERICAN > 60
[2017-11-07 21:30] VITALS: BP 127/68; PULSE 53; RESP 18; TEMP 98
--- NOTE | 2017-11-08 07:45 | CARD ---
APPROVED REPORT Date of service: 11/07/2017 EKG Measurement Heart [id number] MA [id number] <Conclusion> Sinus bradycardia Otherwise normal ECG
--- NOTE | 2017-11-08 09:06 | CT ---
Date of service: 11/07/2017 PROCEDURE: CT HEAD WITHOUT CONTRAST. HISTORY: Vertigo COMPARISON: None available. TECHNIQUE: Axial computed tomography images were obtained through the head/brain without intravenous contrast. Radiation dose: Total exam DLP = 743 mGy-cm. This CT exam was performed using one or more of the following dose reduction techniques: Automated exposure control, adjustment of the mA and/or kV according to patient size, and/or use of iterative reconstruction technique. FINDINGS: HEMORRHAGE: No intracranial hemorrhage. BRAIN: No mass effect or edema. No atrophy or chronic microvascular ischemic changes. VENTRICLES: Unremarkable. No hydrocephalus. CALVARIUM: Unremarkable. PARANASAL SINUSES: Unremarkable as visualized. No significant inflammatory changes. MASTOID AIR CELLS: Unremarkable as visualized. No inflammatory changes. OTHER FINDINGS: None. IMPRESSION: Normal CT of the Head. Concordant results (preliminary interpretation) provided by [facility].
--- NOTE | 2017-11-08 12:01 | CT ---
PROCEDURE: CTA HEAD AND NECK WITH CONTRAST HISTORY: Vertigo COMPARISON: None available. TECHNIQUE: Initial noncontrast head CT was performed. Subsequently, CT angiogram of the head and neck were performed after the intravenous administration of 80 mL of Omnipaque 350. Contiguous 1.5mm thick images were obtained in the axial plane of the neck. 2-D coronal and sagittal MPR images were obtained. Imaging postprocessing was performed with 3-D images also obtained. A delayed contrast head CT was also obtained. This CT exam was performed using one or more of the following dose reduction techniques: Automated exposure control, adjustment of the mA and/or kV according to patient size, and/or use of iterative reconstruction technique. Contrast dose: 95 mL Visipaque 320 Radiation dose: Total exam DLP = 2215.54 mGy-cm. FINDINGS: HEAD: Right: The intracranial internal carotid artery, and anterior and middle cerebral arteries are widely patent. Left: The intracranial internal carotid artery, and anterior and middle cerebral arteries are widely patent. Posterior circulation: The visualized intracranial vertebral arteries, basilar artery and posterior cerebral arteries are widely patent. There is no endoluminal filling defect to suggest thrombus. There is no intracranial saccular aneurysm. NECK: There is a three vessel aortic arch. There is no stenosis at the origins of the great vessels at the level of the aortic arch. Right Carotid: On the right, the common carotid, internal carotid and external carotid arteries are widely patent. There is no hemodynamically significant stenosis in the internal carotid artery by NASCET criteria. Left Carotid: On the left, the common carotid, internal carotid and external carotid arteries are widely patent.There is no hemodynamically significant stenosis in the internal carotid arteries. There is no hemodynamically significant stenosis in the internal carotid artery by NASCET criteria. The vertebral arteries are widely patent. The visualized soft tissues of the neck are normal. The visualized brain and cervical spine are within normal limits. The lung apices are clear. IMPRESSION: 1. No evidence of endoluminal thrombus,occlusion or definite significant stenosis in the intracranial arteries. 2. No evidence of hemodynamically significant stenosis in the internal carotid arteries. 3. Patent bilateral vertebral arteries. A preliminary report was provided by [facility].
== END 2017-11-07 21:31 | disposition home or self-care (01) ==
LOC: H.ER 17:33
DX: R42 Dizziness and giddiness (principal)
CPT/HCPCS: 70450; 70496; 70498; 71045; 80053; 81003; 82948; 85025; 85610; 85730; 93005; 96360; 96361; 99283; J2405; J7030; Q9967

== ENCOUNTER 2018-01-27 20:23 | Emergency (ER) | payer SELFPAY ==
[2018-01-27 20:23] VITALS: BMI 28.1
[2018-01-27 21:25] VITALS: RESP 18
[2018-01-27] MEDS ORDERED: Tdap Vaccine 0.5 ml Vial (10-64 yrs) IM ONE ×2 (21:27→22:00)
--- NOTE | 2018-01-27 21:48 | ED PDOC ---
HPI: General Adult Time Seen by Provider: 01/27/18 21:00 Chief Complaint (Nursing): Abnormal Skin Integrity Chief Complaint (Provider): Abnormal Skin Integrity History Per: Patient History/Exam Limitations: no limitations Onset/Duration Of Symptoms: Hrs Current Symptoms Are (Timing): Still Present Additional Complaint(s): Danielito Newell is a 62 year old male with no past medical history who is presenting to the ED for evaluation of wound to right foot onset earlier today. Patient states that he was wearing slippers and stepped on a nail, which went through the slipper and his foot poking out the other side. He reports that nail punctured him through the medial part of the foot near the great toe. He does not recall his last tetanus and offers no other medical complaints at this time. PMD: none provided Past Medical History Reviewed: Historical Data, Nursing Documentation, Vital Signs Vital Signs: Last Vital Signs Temp 98.3 F 01/27/18 21:23 Pulse 65 01/27/18 21:23 Resp 18 01/27/18 21:23 BP 116/64 01/27/18 21:23 Pulse Ox 98 01/27/18 21:23 - Medical History PMH: No Chronic Diseases - Surgical History Surgical History: No Surg Hx - Family History Family History: States: Unknown Family Hx - Social History Current smoker - smoking cessation education provided: No Alcohol: None Drugs: Denies - Home Medications Home Medications: Ambulatory Orders Medication Instructions Recorded Bacitracin Ointment [Bacitracin] 1 applic TOP BID #1 tube 10/12/17 Cephalexin [cephalexin] 500 mg PO Q6 #39 cap 10/12/17 Cyclobenzaprine [Cyclobenzaprine 10 mg PO BID PRN #14 tab 10/12/17 HCl] Naproxen [Naprosyn] 500 mg PO Q12 PRN #20 tablet 10/12/17 oxyCODONE/Acetaminophen [Percocet 1 ea PO Q6 PRN #12 tab 10/12/17 5/325 mg Tab] Naproxen 375 mg PO Q8 PRN #12 tablet 10/20/17 Meclizine [Meclizine*] 25 mg PO Q6 PRN #20 tab 11/07/17 Naproxen [Naprosyn] 500 mg PO BID PRN #15 tablet 11/07/17 Ondansetron [Zofran Odt] 4 mg PO Q8H PRN #15 odt 11/07/17 Amoxicillin/Clavulanate [Augmentin 1 tab PO BID #20 tab 01/27/18 875 MG-125 MG] - Allergies Allergies/Adverse Reactions: Allergies Allergy/AdvReac Type Severity Reaction Status Date / Time aspirin Allergy RASH Verified 11/07/17 17:36 Review of Systems ROS Statement: Except As Marked, All Systems Reviewed And Found Negative Musculoskeletal: Positive for: Foot Pain Physical Exam - Reviewed Nursing Documentation Reviewed: Yes Vital Signs Reviewed: Yes - Physical Exam Appears: Positive for: Well, Non-toxic, No Acute Distress Head Exam: Positive for: ATRAUMATIC, NORMAL INSPECTION, NORMOCEPHALIC Skin: Positive for: Normal Color Eye Exam: Positive for: Normal appearance ENT: Positive for: Normal ENT Inspection Neck: Positive for: Normal Cardiovascular/Chest: Positive for: Regular Rate, Rhythm Respiratory: Positive for: Normal Breath Sounds Extremity: Positive for: Normal ROM, Other (puncture wound to medial right foot near great toe). Negative for: Deformity, Swelling Neurologic/Psych: Positive for: Alert, Oriented. Negative for: Motor/Sensory Deficits - ECG O2 Sat by Pulse Oximetry: 98 (RA) Pulse Ox Interpretation: Normal Medical Decision Making Medical Decision Making: Time: 21:27 Plan: --Adacel 0.5 ml IM --X-ray right foot XR without acute abnormalities. Scribe Attestation: Documented by Luna Gamble, acting as a scribe for Renetta Kaplan PA-C. Provider Scribe Attestation: All medical record entries made by the Scribe were at my direction and personally dictated by me. I have reviewed the chart and agree that the record accurately reflects my personal performance of the history, physical exam, medical decision making, and the department course for this patient. I have also personally directed, reviewed, and agree with the discharge instructions and disposition. Disposition - Clinical Impression Clinical Impression: Puncture wound, Tetanus toxoid vaccination administered at current visit - Patient ED Disposition Is Patient to be Admitted: No Counseled Patient/Family Regarding: Diagnosis, Need For Followup, Rx Given - Disposition Disposition: Routine/Home Disposition Time: 22:33 Condition: GOOD Prescriptions: Amoxicillin/Clavulanate [Augmentin 875 MG-125 MG] 1 tab PO BID #20 tab Instructions: Wound Care Forms: [employer] ([place]anese)
[2018-01-28 00:01] VITALS: BP 130/78; PULSE 78; TEMP 98; O2SAT 100
--- NOTE | 2018-01-28 09:46 | RAD ---
Date of service: 01/27/2018 PROCEDURE: Right Foot Radiographs. HISTORY: nail through foot COMPARISON: None. FINDINGS: BONES: Normal. No fracture. JOINTS: Normal. SOFT TISSUES: First MTP joint soft tissue swelling. OTHER FINDINGS: Heel spur. IMPRESSION: No fracture.
== END 2018-01-28 00:01 | disposition home or self-care (01) ==
LOC: H.ER 20:23
DX: S91.331A Puncture wound without foreign body, right foot, initial encounter (principal); W45.0XXA Nail entering through skin, initial encounter; Z23 Encounter for immunization

== ENCOUNTER 2018-04-03 16:08 | Emergency (ER) | payer SELFPAY ==
[2018-04-03 16:08] VITALS: BMI 28.1
[2018-04-03] MEDS ORDERED: Sodium Chloride 0.9% 1,000 ML IV ONE (16:57)
[2018-04-03 17:31] LABS: BASO # 0.1 K/uL (0.0-0.2); BASO % 1.6 % (0.0-2.0); EOS % 0.1 % (0.0-4.0); HEMOGLOBIN 14.4 g/dL (12.0-18.0); LYMPH # 1.3 K/uL (1.0-4.3); LYMPH % 14.4 % (20.0-40.0); MEAN CORPUSCULAR HGB CONC 33.4 g/dL (33.0-37.0); MEAN PLATELET VOLUME 9.7 fl (7.2-11.7); MONO # 0.3 K/uL (0.0-0.8); NEUT # 7.4 K/uL (1.8-7.0); NEUT % 80.9 % (50.0-75.0); RBC 4.8 Mil/uL (4.40-5.90); WHITE BLOOD COUNT 9.1 K/uL (4.8-10.8)
[2018-04-03 17:36] LABS: URINE BILIRUBIN NEGATIVE (NEGATIVE); URINE BLOOD NEGATIVE (NEGATIVE); URINE CLARITY CLEAR (Clear); URINE COLOR YELLOW (YELLOW); URINE GLUCOSE (UA) NEG (NEGATIVE); URINE LEUKOCYTE ESTERASE NEG Leu/uL (Negative); URINE PROTEIN 30 mg/dL (NEGATIVE); URINE UROBILINOGEN 0.2-1.0 mg/dL (0.2-1.0)
[2018-04-03 17:53] LABS: BLOOD UREA NITROGEN 13 mg/dl (9-20); CALCIUM 9.5 mg/dL (8.4-10.2); GFR NON-AFRICAN AMERICAN > 60
[2018-04-03 17:55] LABS: ALB/GLOB RATIO 1.3 (1.0-2.1); ALBUMIN 4.8 g/dL (3.5-5.0); ALT/SGPT 17 U/L (21-72); AST/SGOT 43 U/L (17-59)
--- NOTE | 2018-04-03 19:23 | ED PDOC ---
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 History/Exam Limitations: no limitations, language barrier Onset/Duration Of Symptoms: Days (>30 days) Outside of [place] travel?: No Current Symptoms Are (Timing): Gone Now Severity: Mild (Pt presents to the ED complaining of several weeks of intermittent vomiting and dizziness that affects him when he turns his head or stands up very rapidaly' pt denies fever, trauma, or diarhhea) Past Medical History Reviewed: Historical Data, Nursing Documentation, Vital Signs Vital Signs: Last Vital Signs Temp 98.3 F 04/03/18 16:31 Pulse 52 L 04/03/18 16:31 Resp 16 04/03/18 16:31 BP 127/74 04/03/18 16:31 Pulse Ox 97 04/03/18 16:31 - Family History Family History: States: Unknown Family Hx - Home Medications Home Medications: Ambulatory Orders Medication Instructions Recorded Bacitracin Ointment [Bacitracin] 1 applic TOP BID #1 tube 10/12/17 Cephalexin [cephalexin] 500 mg PO Q6 #39 cap 10/12/17 Cyclobenzaprine [Cyclobenzaprine 10 mg PO BID PRN #14 tab 10/12/17 HCl] Naproxen [Naprosyn] 500 mg PO Q12 PRN #20 tablet 10/12/17 oxyCODONE/Acetaminophen [Percocet 1 ea PO Q6 PRN #12 tab 10/12/17 5/325 mg Tab] Naproxen 375 mg PO Q8 PRN #12 tablet 10/20/17 Meclizine [Meclizine*] 25 mg PO Q6 PRN #20 tab 11/07/17 Naproxen [Naprosyn] 500 mg PO BID PRN #15 tablet 11/07/17 Ondansetron [Zofran Odt] 4 mg PO Q8H PRN #15 odt 11/07/17 Amoxicillin/Clavulanate [Augmentin 1 tab PO BID #20 tab 01/27/18 875 MG-125 MG] Meclizine HCl 25 mg PO BID #30 tablet 04/03/18 - Allergies Allergies/Adverse Reactions: Allergies Allergy/AdvReac Type Severity Reaction Status Date / Time aspirin Allergy RASH Verified 04/03/18 16:31 Review of Systems ROS Statement: Except As Marked, All Systems Reviewed And Found Negative ENT: Negative for: Ear Pain Gastrointestinal: Positive for: Nausea Neurological: Positive for: Headache, Dizziness Physical Exam - Reviewed Nursing Documentation Reviewed: Yes Vital Signs Reviewed: Yes - Physical Exam Appears: Positive for: Well, Non-toxic, No Acute Distress. Negative for: Uncomfortable Head Exam: Positive for: ATRAUMATIC, NORMAL INSPECTION Skin: Positive for: Normal Color, Warm, Dry. Negative for: Diaphoresis, Pallor, Rash Eye Exam: Positive for: Normal appearance, EOMI, PERRL, Nystagmus (bilateral nystagmus on rapid movement of the head). Negative for: Periorbital swelling, Periorbital tenderness ENT: Positive for: Normal ENT Inspection Neck: Positive for: Normal, Painless ROM, Supple. Negative for: Decreased ROM Cardiovascular/Chest: Positive for: Regular Rate, Rhythm. Negative for: Bradycardia, Tachycardia Respiratory: Positive for: Normal Breath Sounds. Negative for: Decreased Breath Sounds, Crackles, Rales, Rhonchi, Stridor, Wheezing, Respiratory Distress Pulses-Carotid (L): 2+ Pulses-Carotid (R): 2+ Pulses-Radial (L): 2+ Pulses-Radial (R): 2+ Back: Positive for: Normal Inspection. 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 Negative for: Motor/Sensory Deficits, Aphasia, Facial Droop - Laboratory Results Result Diagrams: 04/03/18 17:27 04/03/18 17:27 Lab Results: Total Bilirubin 0.7 mg/dl (0.2-1.3) 04/03/18 17:27 AST 43 U/L (17-59) 04/03/18 17:27 ALT 17 U/L (21-72) L D 04/03/18 17:27 Alkaline Phosphatase 99 U/L (38-126) 04/03/18 17:27 Total Protein 8.6 G/DL (6.3-8.2) H 04/03/18 17:27 Albumin 4.8 g/dL (3.5-5.0) 04/03/18 17: Globulin 3.8 gm/dL (2.2-3.9) 04/03/18 17: Albumin/Globulin Ratio 1.3 (1.0-2.1) 04/03/18 17: Urine Color Yellow (YELLOW) 04/03/18 17: Urine Clarity Clear (Clear) 04/03/18 17:27 Urine pH 7.0 (5.0-8.0) 04/03/18 17: Ur Specific [place] 1.019 (1.003-1.030) 04/03/18 17: Urine Protein 30 mg/dL (NEGATIVE) 04/03/18 17: Urine Glucose (UA) Neg mg/dL (NEGATIVE) 04/03/18 17: Urine Ketones Negative mg/dL (NEGATIVE) 04/03/18 17: Urine Blood Negative (NEGATIVE) 04/03/18 17: Urine Nitrate Negative (NEGATIVE) 04/03/18 17: Urine Bilirubin Negative (NEGATIVE) 04/03/18 17: Urine Urobilinogen 0.2-1.0 mg/dL (0.2-1.0) 04/03/18 17: Ur Leukocyte Esterase Neg Ruddy/uL (Negative) 04/03/18 17: Urine RBC (Auto) 2 /hpf (0-3) 04/03/18 17: Urine Microscopic WBC < 1 /hpf (0-5) 04/03/18 17: - ECG O2 Sat by Pulse Oximetry: 97 Disposition - Clinical Impression Clinical Impression: Vertigo, Dizzy spells Doctor Will See Patient In The: Office Counseled Patient/Family Regarding: Diagnosis, Need For Followup, Rx Given - Disposition Referrals: [facility] [Outside] Emeka Leon MD [Staff Provider] - Disposition: Routine/Home Disposition Time: 19:26 Condition: STABLE Prescriptions: Meclizine HCl 25 mg PO BID #30 tablet Instructions: Vertigo (a Type of Dizziness), Vertigo (a Type of Dizziness) (DC), Dizziness, Nonvertigo, (DC) Forms: Plazes (Prydeinig)
[2018-04-03 19:37] VITALS: BP 124/76; PULSE 55; RESP 18; TEMP 98.9; O2SAT 100
== END 2018-04-03 19:44 | disposition home or self-care (01) ==
LOC: H.ER 16:08
DX: R42 Dizziness and giddiness (principal)
CPT/HCPCS: 80053; 81003; 85025; 87070; 87430; 87804; 96374; 99285; J2405; J7030